=== PATIENT | male | born 1955 | race Caucasian/White ===

== ENCOUNTER 2017-09-05 08:00 | Day surgery (SDC) | payer BC ==
[2017-09-04 08:34] VITALS: BMI 29.8
[~2017-09-05 08:00] MED LIST: LACTATED RINGERS 1,000 ML IV SCH
[2017-09-05] MEDS ORDERED: LIDOCAINE 1% 20 ML VIAL (10MG/ML) FOR IV START INTRADERMA ONE (08:18)
[2017-09-05 08:22] VITALS: RESP 18; TEMP 98.7
[2017-09-05] MEDS ORDERED: PROPOFOL 10 MG/ML 20 ML VIAL IV ONE (09:10)
--- NOTE | 2017-09-05 09:16 | P.GSHP ---
History of Present Illness H&P Date: 09/05/17 Chief Complaint: colon cancer screening Patient here today for screening colonoscopy. He has not had one previously. No bowel related complaints. No family history of colon cancer. Past Medical History Past Medical History: GERD/Reflux, Prostate Disorder Additional Past Medical History / Comment(s): PROSTATE CANCER History of Any Multi-Drug Resistant Organisms: None Reported Past Surgical History: Orthopedic Surgery Additional Past Surgical History / Comment(s): PROSTATE SURGERY, LEFT LEG SURGERY Past Anesthesia/Blood Transfusion Reactions: No Reported Reaction Past Psychological History: No Psychological Hx Reported Smoking Status: Never smoker Past Alcohol Use History: Occasional Past Drug Use History: None Reported - Past Family History Mother Family Medical History: No Reported History Medications and Allergies Home Medications Medication Instructions Recorded Confirmed Type Ibuprofen [Motrin] 400 - 800 mg PO Q6HR PRN 09/04/17 09/04/17 History Omeprazole [PriLOSEC] 20 mg PO AC-BRKFST PRN 09/04/17 09/05/17 History Allergies Allergy/AdvReac Type Severity Reaction Status Date / Time codeine Allergy Hallucinati Verified 09/04/17 08:14 ons Surgical - Exam Vital Signs Temp Pulse Resp BP Pulse Ox 98.7 F 72 18 131/82 93 L 09/05/17 08:21 09/05/17 08:21 09/05/17 08:21 09/05/17 08:21 09/05/17 08:21 Physical exam: General: Well-developed, well-nourished HEENT: Normocephalic, sclerae nonicteric Abdomen: Nontender, nondistended Extremities: No edema Neuro: Alert and oriented Assessment and Plan (1) Colon cancer screening Narrative/Plan: Will proceed with colonoscopy at this time Current Visit: Yes Status: Acute Code(s): Z12.11 - ENCOUNTER FOR SCREENING FOR MALIGNANT NEOPLASM OF COLON SNOMED Code(s): 130267953
--- NOTE | 2017-09-05 09:33 | P.PCN ---
Date of Procedure: 09/05/17 Procedure(s) Performed: PREOPERATIVE DIAGNOSIS: Colon cancer screening POSTOPERATIVE DIAGNOSIS: Ascending colon polyp, rectal polyp, mild diverticulosis PROCEDURE: Colonoscopy with biopsy ANESTHESIA: MAC SURGEON: Clint Patel M.D. SPECIMENS: Ascending and rectal polyp ENDOSCOPIC PROCEDURE: The patient was placed on the endoscopy table in the left decubitus position. The Olympus colonoscope was inserted into the anus and passed under direct visualization to the base of the cecum. The appendiceal orifice was visualized. From that point the scope was slowly withdrawn inspecting all surfaces carefully. There were no neoplastic inflammatory or polypoid lesions throughout the cecum. In the ascending colon there was a small polyp that was removed using the cold biopsy forceps. The remainder the ascending transverse descending and sigmoid colon appeared normal. In the mid rectum there was another small polyp that was removed in a similar fashion. There was mild left-sided diverticulosis present. Digital rectal examination was normal. The patient was taken to the recovery room in stable condition per anesthesia guidelines. RECOMMENDATIONS: Await biopsy results.
[2017-09-05 09:59] VITALS: BP 127/76; PULSE 75
== END 2017-09-05 10:11 | disposition home or self-care (01) ==
LOC: ORWHC2ENDO 08:00
PROVIDERS: ATTEND Surgery
DX: Z12.11 Encounter for screening for malignant neoplasm of colon (principal); D12.2 Benign neoplasm of ascending colon; K62.1 Rectal polyp; K57.30 Diverticulosis of large intestine without perforation or abscess without bleeding; K21.9 Gastro-esophageal reflux disease without esophagitis; Z85.46 Personal history of malignant neoplasm of prostate; Z88.5 Allergy status to narcotic agent; Z79.899 Other long term (current) drug therapy
CPT/HCPCS: 88305; 45380; J2704

== ENCOUNTER → 2019-07-12 | Outpatient (CLI) | payer BC ==
--- NOTE | 2019-07-12 13:19 | US ---
EXAMINATION TYPE: US venous doppler duplex LE RT DATE OF EXAM: 07/12/2019 12:23 PM COMPARISON: NONE CLINICAL HISTORY: M79.669 Pain in unspecified lower leg. Right leg pain and swelling, right knee repl acement 5 days ago, patient on blood thinners. SIDE PERFORMED: Right TECHNIQUE: The lower extremity deep venous system is examined utilizing real time linear array sonog isabel with graded compression, doppler sonography and color-flow sonography. VESSELS IMAGED: External Iliac Vein (EIV) Common Femoral Vein Deep Femoral Vein Greater Saphenous Vein * Femoral Vein Popliteal Vein Small Saphenous Vein * Proximal Calf Veins (* superficial vessels) Grayscale, color doppler, spectral doppler imaging performed of the deep veins of the right lower ext remity. There is normal flow, compressibility, vascular waveforms. Right Leg: Appears negative for DVT IMPRESSION: No sonographic evidence of deep venous arthrosis within the right lower extremity.
== END | disposition home or self-care (01) ==
LOC: RADUSWWP 11:59
PROVIDERS: ATTEND Orthopaedic Surgery Sports Medicine
DX: M79.89 Other specified soft tissue disorders (principal); M79.661 Pain in right lower leg; R60.9 Edema, unspecified

== ENCOUNTER → 2020-01-04 | Outpatient (CLI) | payer BC ==
--- NOTE | 2020-01-04 16:39 | US ---
EXAMINATION TYPE: US carotid duplex BILAT DATE OF EXAM: 01/04/2020 COMPARISON: NONE CLINICAL HISTORY: 64-year-old male G45.9 TIA. TECHNIQUE: Carotid duplex ultrasound examination. Indirect Doppler criteria was utilized. FINDINGS: EXAM MEASUREMENTS: RIGHT: Peak Systolic Velocity (PSV) cm/sec ----- Right CCA: 77.6 ----- Right ICA: 79.5 ----- Right ECA: 99.1 ICA/CCA ratio: 1.0 RIGHT: End Diastole cm/sec ----- Right CCA: 18.2 ----- Right ICA: 35.3 ----- Right ECA: 13.7 LEFT: Peak Systolic Velocity (PSV) cm/sec ----- Left CCA: 70.0 ----- Left ICA: 69.1 ----- Left ECA: 73.5 ICA/CCA ratio: 1.0 LEFT: End Diastole cm/sec ----- Left CCA: 16.6 ----- Left ICA: 18.3 ----- Left ECA: 9.9 VERTEBRALS (direction of flow): Right Vertebral: Antegrade Left Vertebral: Antegrade Rhythm: Normal Security System Administrator notes: Mild atherosclerotic changes, no significant velocity elevations. IMPRESSION: No hemodynamically significant internal carotid artery stenosis on either side. Criteria for Assigning % of Stenosis / Diameter reduction (Estimation based on the indirect measurements of the internal carotid artery velocities (ICA PSV). 1. Normal (no stenosis)=ICA PSV < 125 cm/s: ratio < 2.0: ICA EDV<40 cm/s. 2. Less than 50% stenosis=ICA PSV < 125 cm/s: ratio < 2.0: ICA EDV<40 cm/s. 3. 50 to 69% stenosis=ICA PSV of 125 to 230 cm/s: ration 2.0 ? 4.0: ICA EDV 40-100 cm/s. 4. Greater than 70% stenosis to near occlusion= ICA PSV > 230 cm/s: ratio > 4.0: ICA EDV > 100 cm/s. 5. Near occlusion= ICA PSV velocities may be low or undetectable: variable ratio and ICA EDV. 6. Total occlusion=unable to detect flow.
--- NOTE | 2020-01-05 11:44 | CT ---
EXAMINATION TYPE: CT brain wo/w con DATE OF EXAM: 01/04/2020 COMPARISON: None HISTORY: 64-year-old male G45.9, TIA's TECHNIQUE: Examination was done in axial plane before and after administration of 100 mL Isovue 300 intravenous contrast. Coronal and sagittal reconstructions performed. CT DLP: 2523 mGycm Automated exposure control for dose reduction was used. FINDINGS: There is no evidence of acute intracranial hemorrhage, acute ischemic changes, mass, mass-effect, or extra-axial fluid collection. There is no effacement of cerebral sulci or basal subarachnoid cister ns. There is no hydrocephalus. There is no midline shift. Castro-white matter distinction is preserv ed. Mild patchy white matter hypodensities in both cerebral hemispheres suggesting changes of chronic sma ll vessel ischemic disease. Suspect persistent origin right posterior cerebral artery. Asymmetrically diminutive appearance to the M1 segment left middle cerebral artery may be a product of slice selection. Dural venous sinuses are patent. No enhancing intracranial lesions seen. Moderate mucosal thickening ethmoid air cells. IMPRESSION: 1. Mild patchy changes of chronic small vessel ischemic disease. No acute intracranial abnormality se en. 2. No enhancing intracranial lesions. 3. Asymmetrically diminutive appearance to the M1 segment left MCA may be a product of slice selectio n. Given the patient's history, consider MR angiography to exclude arterial stenosis.
--- NOTE | 2020-01-05 16:01 | ECHOF ---
Referral Reason:G45.9 Transient cerebral ischemic attack, unspecif MEASUREMENTS -------- HEIGHT: 180.3 cm WEIGHT: 99.8 kg BP: RVIDd: 2.5 cm (< 3.3) IVSd: 1.2 cm (0.6 - 1.1) LVIDd: 3.8 cm (3.9 - 5.3) LVPWd: 1.5 cm (0.6 - 1.1) IVSs: 1.9 cm LVIDs: 1.7 cm LVPWs: 1.9 cm LAESV Index (A-L): 33.98 ml/m Ao Diam: 3.6 cm (2.0 - 3.7) AV Cusp: 2.5 cm (1.5 - 2.6) LA Diam: 4.1 cm (2.7 - 3.8) MV EXCURSION: 23.948 mm (> 18.000) MV EF SLOPE: 276 mm/s (70 - 150) EPSS: 0.8 cm MV E Christopher: 0.85 m/s MV DecT: 188 ms MV A Christopher: 0.72 m/s MV E/A Ratio: 1.19 RAP: 5.00 mmHg RVSP: 13.49 mmHg FINDINGS -------- Sinus rhythm. This was a technically adequate study. The left ventricular size is normal. There is mild concentric left ventricular hypertrophy. Overa ll left ventricular systolic function is normal with, an EF between 55 - 60 %. The right ventricle is normal in size. LA is midly dilated 29-33ml/m2. The right atrial size is normal. The aortic valve is trileaflet, and appears structurally normal. No aortic stenosis or regurgitation. The mitral valve is normal. Mild mitral regurgitation is present. The tricuspid valve appears structurally normal. Mild tricuspid regurgitation present. Right vent ricular systolic pressure is normal at < 35 mmHg. There is no pulmonic regurgitation present. The aortic root size is normal. Normal inferior vena cava with normal inspiratory collapse consistent with estimated right atrial pre ssure of 5 mmHg. There is a small, generalized pericardial effusion present. CONCLUSIONS -------- 1. There is mild concentric left ventricular hypertrophy. 2. Overall left ventricular systolic function is normal with, an EF between 55 - 60 %. 3. LA is midly dilated 29-33ml/m2. 4. The aortic valve is trileaflet, and appears structurally normal. No aortic stenosis or regurgitati on. 5. Mild mitral regurgitation is present. 6. Mild tricuspid regurgitation present. 7. There is no pulmonic regurgitation present. 8. There is a small, generalized pericardial effusion present. PRODUCT SUPPORT ENGINEER: Nilam Bustamante RDCS
== END | disposition home or self-care (01) ==
LOC: RADECHMAIN 14:36
PROVIDERS: ATTEND Family Medicine
DX: I08.1 Rheumatic disorders of both mitral and tricuspid valves (principal); I31.3 Pericardial effusion (noninflammatory); I67.82 Cerebral ischemia; G45.9 Transient cerebral ischemic attack, unspecified; Z88.6 Allergy status to analgesic agent
CPT/HCPCS: 93306; 93880; 70470; Q9967

== ENCOUNTER 2020-04-03 12:53 | Emergency (ER) | payer BC ==
[2020-04-03] MEDS ORDERED: ONDANSETRON 4 MG/2 ML VIAL IVP STA (13:09)
[2020-04-03] MEDS ORDERED: SODIUM CHLORIDE 0.9% 1,000 ML IV STA (13:09)
[2020-04-03] MEDS ORDERED: PANTOPRAZOLE 40 MG/10 ML VIAL IVP STA (13:10)
--- NOTE | 2020-04-03 13:26 | ED ---
Nausea/Vomiting/Diarrhea HPI - General Source: family Mode of arrival: ambulatory Limitations: no limitations <Noah Severino - Last Filed: 04/04/20 12:47> <Juanita Keith - Last Filed: 04/05/20 15:10> - General Chief complaint: Nausea/Vomiting/Diarrhea Stated complaint: [place] COVID test Time Seen by Provider: 04/03/20 13:01 - History of Present Illness Initial comments: Patient is 64-year-old male presenting to emergency Department with a chief complaint of nausea vomiting diarrhea. Patient reports symptoms started yesterday after he had pork chops which he personally cut. Patient states he's been nauseous but never actually vomited. Does report generalized lower abdominal pressure which she believes is secondary to the diarrhea. Reports there is profuse watery diarrhea with no hematochezia or melena. Patient also reports generalized body aches. States he feels like the flu. Patient states his friends told him to be tested for covid-19. She denies any exposure to a direct Covid patient. Denies taking medication to alleviate the symptoms. Denies any coughing, chest pain, shortness of breath, back pain. Does report some night sweats but denies chills or fevers. Denies hematuria, dysuria, increased urgency or frequency. (Noah Severino) - Related Data Home Medications Medication Instructions Recorded Confirmed Ascorbic Acid [Vitamin C] 500 mg PO DAILY 04/03/20 04/03/20 Cholecalciferol [Vitamin D3 (25 1,000 unit PO DAILY 04/03/20 04/03/20 Mcg = 1000 Iu)] Zinc 50 mg PO DAILY 04/03/20 04/03/20 Previous Rx's Medication Instructions Recorded Ondansetron Odt [Zofran Odt] 4 mg PO Q8HR PRN #10 tab 04/03/20 Allergies Allergy/AdvReac Type Severity Reaction Status Date / Time codeine Allergy Hallucinati Verified 04/03/20 13:28 ons Review of Systems ROS Other: All systems not noted in ROS Statement are negative. <Noah Severino - Last Filed: 04/04/20 12:47> ROS Other: All systems not noted in ROS Statement are negative. <Juanita Keith - Last Filed: 04/05/20 15:10> ROS Statement: Those systems with pertinent positive or pertinent negative responses have been documented in the HPI. Past Medical History Past Medical History: GERD/Reflux, Prostate Disorder Additional Past Medical History / Comment(s): PROSTATE CANCER History of Any Multi-Drug Resistant Organisms: None Reported Past Surgical History: Orthopedic Surgery Additional Past Surgical History / Comment(s): PROSTATE SURGERY, LEFT LEG SURGERY Past Anesthesia/Blood Transfusion Reactions: No Reported Reaction Past Psychological History: No Psychological Hx Reported Smoking Status: Never smoker Past Alcohol Use History: Occasional Past Drug Use History: None Reported - Past Family History Mother Family Medical History: No Reported History <Noah Severino - Last Filed: 04/04/20 12:47> General Exam Limitations: no limitations General appearance: alert, in no apparent distress Head exam: Present: atraumatic, normocephalic, normal inspection Eye exam: Present: normal appearance, PERRL, EOMI Pupils: Present: normal accommodation ENT exam: Present: normal exam, normal oropharynx, mucous membranes moist, TM's normal bilaterally, normal external ear exam Neck exam: Present: normal inspection, full ROM. Absent: tenderness Respiratory exam: Present: normal lung sounds bilaterally. Absent: respiratory distress, wheezes, rales Cardiovascular Exam: Present: regular rate, normal rhythm, normal heart sounds GI/Abdominal exam: Present: soft, tenderness (Mild, diffuse lower abdominal tenderness. Negative McBurney point.), normal bowel sounds. Absent: distended, guarding, rebound, rigid Extremities exam: Present: normal inspection, full ROM, normal capillary refill. Absent: tenderness Back exam: Present: normal inspection, full ROM. Absent: tenderness, CVA tenderness (R), CVA tenderness (L) Neurological exam: Present: alert, oriented X3, normal gait Psychiatric exam: Present: normal affect, normal mood Skin exam: Present: warm, dry, intact, normal color <Noah Severino Last Filed: 04/04/20 12:47> Course Vital Signs 04/03/20 04/03/20 12:54 15:21 Temperature 98.7 F 98.4 F Pulse Rate 75 71 Respiratory 18 19 Rate Blood Pressure 137/69 130/84 O2 Sat by Pulse 98 Oximetry Medical Decision Making - Lab Data Result diagrams: 04/03/20 13:40 04/03/20 13:40 <Noah Severino - Last Filed: 04/04/20 12:47> - Lab Data Result diagrams: 04/03/20 13:40 04/03/20 13:40 <Juanita Keith - Last Filed: 04/05/20 15:10> - Medical Decision Making Patient is 64-year-old male presenting to the emergency department with a chief complaint of nausea vomiting diarrhea. Physical examination is unremarkable aside from mild, diffuse lower abdominal tenderness. covid-19r testing is negative. He does have mild leukocytosis which I suspect secondary to a vomiting episode. I believe the symptoms are more related to gastroenteritis rather than being covid-19. Patient was given IV fluids and antiemetics. On reevaluation, patient reports improvement in symptoms. Patient will be discharged with Zofran and advised to follow. Bananas, rice applesauce and toast diet. He was advised to follow with his primary care physician. He was advised to take Tylenol if he develops a fever. He was also advised to self isolate until he received the results of the Covid testing. Strict return parameters were thoroughly discussed the patient was attempting agreeable. Case discussed with physician. (Noah Severino) I was available for consultation in the emergency department. The history and physical exam were done by the midlevel provider. I was consulted for this patients care. I reviewed the case with the midlevel provider and based on their presentation of the patient, I agree with the assessment, medical decision making and plan of care as documented. Chart was dictated using [employer] dictation software. Attempts were made to correct any dictation errors however some typographical errors may persist. (Juanita Keith) - Lab Data Lab Results 04/03/20 04/03/20 04/03/20 Range/Units 13:40 13:40 13:40 WBC 11.6 H (3.8-10.6) k/uL RBC 5.43 (4.30-5.90) m/uL Hgb 16.4 (13.0-17.5) gm/dL Hct 48.3 (39.0-53.0) % MCV 89.0 (80.0-100.0) fL MCH 30.1 (25.0-35.0) pg MCHC 33.9 (31.0-37.0) g/dL RDW 12.9 (11.5-15.5) % Plt Count 210 (150-450) k/uL Neutrophils % 85 % Lymphocytes % 9 % Monocytes % 4 % Eosinophils % 0 % Basophils % 0 % Neutrophils # 9.8 H (1.3-7.7) k/uL Lymphocytes # 1.1 (1.0-4.8) k/uL Monocytes # 0.5 (0-1.0) k/uL Eosinophils # 0.0 (0-0.7) k/uL Basophils # 0.0 (0-0.2) k/uL Sodium 139 (137-145) mmol/L Potassium 4.1 (3.5-5.1) mmol/L Chloride 107 (98-107) mmol/L Carbon Dioxide 25 (22-30) mmol/L Anion Gap 7 mmol/L BUN 21 H (9-20) mg/dL Creatinine 1.25 (0.66-1.25) mg/dL Est GFR (CKD-EPI)AfAm 70 (>60 ml/min/1.73 sqM) Est GFR (CKD-EPI)NonAf 61 (>60 ml/min/1.73 sqM) Glucose 117 H (74-99) mg/dL Calcium 9.0 (8.4-10.2) mg/dL Total Bilirubin 1.1 (0.2-1.3) mg/dL AST 33 (17-59) U/L ALT 38 (4-49) U/L Alkaline Phosphatase 64 (38-126) U/L Total Protein 7.1 (6.3-8.2) g/dL Albumin 4.2 (3.5-5.0) g/dL Lipase 59 (23-300) U/L Coronavirus (PCR) Not Detected (Not Detected) Disposition Is patient prescribed a controlled substance at d/c from ED?: No Time of Disposition: 15:08 <Noah Severino - Last Filed: 04/04/20 12:47> <Juanita Keith - Last Filed: 04/05/20 15:10> Clinical Impression: Nausea vomiting and diarrhea Disposition: HOME SELF-CARE Condition: Stable Instructions (If sedation given, give patient instructions): Gastroenteritis (DC), Acute Nausea and Vomiting (ED) Additional Instructions: Take prescribed medication as directed. Drink plenty of fluids. Eat bananas, rice, applesauce and toast. Prescriptions: Ondansetron Odt [Zofran Odt] 4 mg PO Q8HR PRN #10 tab PRN Reason: Nausea Referrals: Jas Caro Jr, DO [Primary Care Provider] - 1-2 days
[2020-04-03 14:05] LABS: Basophils % (A) 0 %; Eosinophils % (A) 0 %; HCT 48.3 % (39.0-53.0); HGB 16.4 gm/dL (13.0-17.5); Lymphocytes # (A) 1.1 k/uL (1.0-4.8); Lymphocytes % (A) 9 %; MCH 30.1 pg (25.0-35.0); MCHC 33.9 g/dL (31.0-37.0); Mean Platelet Volume 7.7; Monocytes # (A) 0.5 k/uL (0-1.0); Monocytes % (A) 4 %; Neutrophils # (A) 9.8 k/uL (1.3-7.7); Neutrophils % (A) 85 %; Platelet Count 210 k/uL (150-450); RBC 5.43 m/uL (4.30-5.90); RDW 12.9 % (11.5-15.5); WBC 11.6 k/uL (3.8-10.6)
[2020-04-03 14:06] LABS: Albumin 4.2 g/dL (3.5-5.0); Potassium 4.1 mmol/L (3.5-5.1); Total Bilirubin 1.1 mg/dL (0.2-1.3); Total Protein 7.1 g/dL (6.3-8.2)
[2020-04-03 15:22] VITALS: BP 130/84; PULSE 71; RESP 19; TEMP 98.4
== END 2020-04-03 15:22 | disposition home or self-care (01) ==
LOC: EC 12:53
DX: R11.2 Nausea with vomiting, unspecified (principal); R19.7 Diarrhea, unspecified; R10.819 Abdominal tenderness, unspecified site; D72.829 Elevated white blood cell count, unspecified; Z20.828 Contact with and (suspected) exposure to other viral communicable diseases; Z88.5 Allergy status to narcotic agent; Z85.46 Personal history of malignant neoplasm of prostate; Z98.890 Other specified postprocedural states
CPT/HCPCS: 93005; 80053; 83690; 85025; 99284; 96374; 96375; 96361; U0003; J2405; C9113

== ENCOUNTER 2020-12-15 18:16 | Emergency (ER) | payer BC, OTHER ==
[2020-12-15 18:31] VITALS: RESP 18
[2020-12-15] MEDS ORDERED: IPRATROPIUM-ALBUTEROL 3 ML NEB INHALATION STA (18:37)
--- NOTE | 2020-12-15 18:39 | ED ---
General Adult HPI - General Chief complaint: Recheck/Abnormal Lab/Rx Stated complaint: cough Time Seen by Provider: 12/15/20 18:31 Source: patient, family, RN notes reviewed Mode of arrival: ambulatory Limitations: no limitations - History of Present Illness Initial comments: Patient is a pleasant 65-year-old male presenting to the emergency department with cough. Onset of symptoms was a few days ago. Patient did see his doctor 3 days ago and was diagnosed with pneumonia. Chest x-ray was not done at that time. Patient was put on antibiotics however no improvement of symptoms. Symptoms may be as little bit worse. Patient does cough with yellow sputum. No fevers. No leg pain or leg swelling. Patient does get similar symptoms related to pneumonia almost every year. - Related Data Home Medications Medication Instructions Recorded Confirmed Ascorbic Acid [Vitamin C] 500 mg PO DAILY 04/03/20 04/03/20 Cholecalciferol [Vitamin D3 (25 1,000 unit PO DAILY 04/03/20 04/03/20 Mcg = 1000 Iu)] Zinc 50 mg PO DAILY 04/03/20 04/03/20 Previous Rx's Medication Instructions Recorded Ondansetron Odt [Zofran Odt] 4 mg PO Q8HR PRN #10 tab 04/03/20 Albuterol Sulfate [Albuterol 2 puff INHALATION Q6H PRN #1 12/15/20 Sulfate Hfa] inhaler predniSONE [Deltasone] 20 mg PO BID #10 tab 12/15/20 Allergies Allergy/AdvReac Type Severity Reaction Status Date / Time codeine Allergy Hallucinati Verified 12/15/20 18:31 ons Review of Systems ROS Statement: Those systems with pertinent positive or pertinent negative responses have been documented in the HPI. ROS Other: All systems not noted in ROS Statement are negative. Constitutional: Denies: fever, chills Eyes: Denies: eye pain ENT: Denies: ear pain Respiratory: Reports: cough Cardiovascular: Denies: chest pain Endocrine: Denies: fatigue Gastrointestinal: Denies: abdominal pain Genitourinary: Denies: dysuria Musculoskeletal: Denies: back pain Skin: Denies: rash Neurological: Denies: weakness Past Medical History Past Medical History: GERD/Reflux, Prostate Disorder Additional Past Medical History / Comment(s): PROSTATE CANCER History of Any Multi-Drug Resistant Organisms: None Reported Past Surgical History: Orthopedic Surgery Additional Past Surgical History / Comment(s): PROSTATE SURGERY, LEFT LEG SURGERY Past Anesthesia/Blood Transfusion Reactions: No Reported Reaction Past Psychological History: No Psychological Hx Reported Smoking Status: Never smoker Past Alcohol Use History: Occasional Past Drug Use History: None Reported - Past Family History Mother Family Medical History: No Reported History General Exam Limitations: no limitations General appearance: alert, in no apparent distress Head exam: Present: normocephalic Eye exam: Present: normal appearance Neck exam: Present: normal inspection Respiratory exam: Present: rhonchi Cardiovascular Exam: Present: regular rate, normal rhythm GI/Abdominal exam: Present: soft. Absent: tenderness Extremities exam: Present: normal inspection. Absent: pedal edema, calf tenderness Neurological exam: Present: alert Psychiatric exam: Present: normal affect, normal mood Skin exam: Present: normal color Course Vital Signs 12/15/20 12/15/20 12/15/20 18:27 18:45 19:48 Temperature 97.8 F 98 F Pulse Rate 89 83 85 Respiratory 18 18 Rate Blood Pressure 142/84 147/81 O2 Sat by Pulse 97 94 L Oximetry EKG Findings - EKG Comments: EKG Findings:: Normal sinus rhythm 35. AL 158. QRS 90. QT 378. QTC 449. Normal axis. Normal QRS. No acute ST change. Medical Decision Making - Medical Decision Making Patient reevaluated and resting comfortably in bed. Patient feels somewhat better with nebulizer. Pulse ox 97% on room air. Patient updated on results. Patient offered further evaluation including blood work and testing for COVID- 19. Patient refuses. Patient does admit that he had negative covid 19 test done just a couple of days ago. Patient does request area injection. Patient states this is similar to his chronic problems. Patient is agreeable with. Prescription in addition otherwise requests discharge. - Radiology Data Radiology results: image reviewed (Chest x-ray reveals no acute process) Disposition Clinical Impression: Bronchitis Disposition: HOME SELF-CARE Condition: Stable Instructions (If sedation given, give patient instructions): Acute Bronchitis (ED) Additional Instructions: Please do follow-up with your primary care physician in the next couple days for recheck. Return for difficulty in breathing, pain, worsening or changing symptoms or any other concerns. Prescription has been sent to your pharmacy. Prescriptions: Albuterol Sulfate [Albuterol Sulfate Hfa] 2 puff INHALATION Q6H PRN #1 inhaler PRN Reason: Shortness Of Breath predniSONE [Deltasone] 20 mg PO BID #10 tab Is patient prescribed a controlled substance at d/c from ED?: No Referrals: Jas Caro Jr, [Primary Care Provider] - 1-2 days Time of Disposition: 20:06
--- NOTE | 2020-12-15 19:54 | XR ---
EXAMINATION TYPE: XR chest 2V DATE OF EXAM: 12/15/2020 COMPARISON: NONE HISTORY: Cough. Short of breath. TECHNIQUE: 2 views FINDINGS: Heart and mediastinum are normal. Lungs are clear. Diaphragm is normal. Bony thorax is inta ct. There are chest leads. IMPRESSION: No active cardiopulmonary disease. Normal heart.
[2020-12-15] MEDS ORDERED: methylPREDNISolone SOD SUCCI 125 MG/2 ML VIAL IM ONE (20:03)
[2020-12-15 20:05] VITALS: PULSE 86
[2020-12-15 20:24] VITALS: BP 157/90; TEMP 98.1
== END 2020-12-15 20:24 | disposition home or self-care (01) ==
LOC: EC 18:16
DX: J40 Bronchitis, not specified as acute or chronic (principal)
CPT/HCPCS: 94640; 93005; 71046; 99283; 96372; J2930

== ENCOUNTER → 2020-12-25 | Outpatient (CLI) | payer OTHER ==
--- NOTE | 2020-12-25 10:31 | CT ---
EXAMINATION TYPE: CT angio chest DATE OF EXAM: 12/25/2020 COMPARISON: Radiograph 12/15/2020 HISTORY: 65-year-old male R05, R06.02 cough and Shortness of breath TECHNIQUE: Contiguous axial scanning of the chest performed with IV Contrast, patient injected with 1 00, wasted 16 mL of Isovue 370. Coronal/sagittal MIP reconstructions performed. CT DLP: 493 mGycm Automated exposure control for dose reduction was used. FINDINGS: Heart limits of normal in size without pericardial effusion. No flattening of the interventricular se ptum reflux of contrast into the hepatic veins. Borderline ectasia aortic root at 3.5 cm. Also ascending aorta 3.6 cm. Mild atherosclerotic arch calc ifications. Conventional arterial vessel branching anatomy. Scattered nonenlarged mediastinal lymph nodes measuring up to 6 mm AP window and 9 mm precarinal. Mil dly enlarged 1.4 cm right hilar lymph node. Satisfactory opacification of the pulmonary arterial system without evidence for pulmonary embolus. Prominent dependent atelectasis. Mild diffuse bronchial wall thickening. A few scattered calcified granulomas in the lungs measuring up to 6 mm. No consolidation or pleural e ffusion. Small hiatal hernia. Diffuse fatty infiltration of the liver. Bones: [facility] within the lower thoracic spine. Some degenerative change at the left glenohumeral joint IMPRESSION: 1. NO EVIDENCE FOR PULMONARY EMBOLUS. 2. MILD DIFFUSE BRONCHIAL WALL THICKENING SUGGESTS BRONCHITIS OR CHRONIC ASTHMA. A COUPLE BENIGN CALC IFIED GRANULOMAS IN THE LUNGS MEASURING UP TO 6 CM. 3. A SOLITARY MILDLY ENLARGED 1.4 CM RIGHT HILAR LYMPH NODE COULD BE REACTIVE. CONSIDER 6 MONTH FOLLO W-UP CT CHEST TO REASSESS. 4. SMALL HIATAL HERNIA AND HEPATIC STEATOSIS.
== END | disposition home or self-care (01) ==
LOC: RADCTMAIN 10:00
PROVIDERS: ATTEND Family Medicine
DX: J84.10 Pulmonary fibrosis, unspecified (principal); R59.9 Enlarged lymph nodes, unspecified; K76.0 Fatty (change of) liver, not elsewhere classified; R06.02 Shortness of breath; K44.9 Diaphragmatic hernia without obstruction or gangrene
CPT/HCPCS: 71275; Q9967

== ENCOUNTER 2022-03-10 11:14 | Emergency (ER) | payer OTHER ==
[2022-03-10 11:24] VITALS: BP 136/74; PULSE 83; RESP 20; TEMP 98.7
--- NOTE | 2022-03-10 12:04 | XR ---
EXAMINATION TYPE: XR ankle complete RT DATE OF EXAM: 03/10/2022 11:39 AM INDICATION: Patient age:Male; 66 years old; Reason for study: Injury; COMPARISON: None TECHNIQUE: The right ankle is imaged in frontal, lateral and oblique projections. FINDINGS: There is no evidence of acute osseous pathology. The joint spaces are well-preserved without evidenc e of subluxation or dislocation. Kager's fat pad is intact. Mild soft tissue swelling around the late ral ankle. No radiopaque foreign bodies are identified. Calcaneal plantar spurring noted. IMPRESSION: 1. No evidence of acute fracture. 2. Subcutaneous swelling around the lateral ankle likely secondary to underlying soft tissue injury.
--- NOTE | 2022-03-10 12:19 | ED ---
Lower Extremity Injury HPI - General Chief Complaint: Extremity Injury, Lower Stated Complaint: ankle injury Time Seen by Provider: 03/10/22 11:58 Source: patient, RN notes reviewed Mode of arrival: ambulatory Limitations: no limitations - History of Present Illness Initial Comments: 66-year-old male present emergency department chief complaint of right ankle pain. Patient states she days ago he stepped on uneven surface states that he rolled his ankle. Patient states she's had swelling, pain worsening duration no prior ankle fracture. Patient has no paresthesias no other complaints. - Related Data Home Medications Medication Instructions Recorded Confirmed Ascorbic Acid [Vitamin C] 500 mg PO DAILY 04/03/20 04/03/20 Cholecalciferol [Vitamin D3 (25 1,000 unit PO DAILY 04/03/20 04/03/20 Mcg = 1000 Iu)] Zinc 50 mg PO DAILY 04/03/20 04/03/20 Previous Rx's Medication Instructions Recorded Ondansetron Odt [Zofran Odt] 4 mg PO Q8HR PRN #10 tab 04/03/20 Albuterol Sulfate [Albuterol 2 puff INHALATION Q6H PRN #1 12/15/20 Sulfate Hfa] inhaler predniSONE [Deltasone] 20 mg PO BID #10 tab 12/15/20 Ibuprofen [Motrin] 600 mg PO Q8HR PRN #30 tab 03/10/22 Allergies Allergy/AdvReac Type Severity Reaction Status Date / Time codeine Allergy Hallucinati Verified 03/10/22 11:24 ons Review of Systems ROS Statement: Those systems with pertinent positive or pertinent negative responses have been documented in the HPI. ROS Other: All systems not noted in ROS Statement are negative. Past Medical History Past Medical History: GERD/Reflux, Prostate Disorder Additional Past Medical History / Comment(s): PROSTATE CANCER History of Any Multi-Drug Resistant Organisms: None Reported Past Surgical History: Orthopedic Surgery Additional Past Surgical History / Comment(s): PROSTATE SURGERY, LEFT LEG SURGERY Past Anesthesia/Blood Transfusion Reactions: No Reported Reaction Past Psychological History: No Psychological Hx Reported Smoking Status: Never smoker Past Alcohol Use History: Occasional Past Drug Use History: None Reported - Past Family History Mother Family Medical History: No Reported History General Exam Limitations: no limitations General appearance: alert, in no apparent distress Head exam: Present: atraumatic, normocephalic, normal inspection Eye exam: Present: normal appearance, PERRL, EOMI. Absent: scleral icterus, conjunctival injection, periorbital swelling Respiratory exam: Present: normal lung sounds bilaterally. Absent: respiratory distress, wheezes, rales, rhonchi, stridor Cardiovascular Exam: Present: regular rate, normal rhythm, normal heart sounds. Absent: systolic murmur, diastolic murmur, rubs, gallop, clicks Extremities exam: Present: other (Right distal tib-fib there is moderate swelling, tenderness lateral portion over the distal fibula, no foot tenderness no proximal tib-fib tenderness neurovascular intact) Course Vital Signs 03/10/22 11:22 Temperature 98.7 F Pulse Rate 83 Respiratory 20 Rate Blood Pressure 136/74 O2 Sat by Pulse 98 Oximetry Procedures - Orthopedic Splinting/Casting Injury #1 Side: right Lower Extremity Injury Location: short leg, ankle Lower Extremity Immobilizer: posterior splint, synthetic pre-padded splint Other Orthopedic Equipment: crutches Medical Decision Making - Medical Decision Making X-ray was reviewed by me shows distal fibular fracture. Patient was splinted in a short leg splint, crutches were provided on-call orthopedics provided patient was discharged with ibuprofen did not request any pain medications in the emergency department. Disposition Clinical Impression: Closed fracture of right distal fibula Disposition: HOME SELF-CARE Condition: Stable Instructions (If sedation given, give patient instructions): Leg Fracture (ED) Additional Instructions: Please return to the Emergency Department if symptoms worsen or any other c oncerns. Prescriptions: Ibuprofen [Motrin] 600 mg PO Q8HR PRN #30 tab PRN Reason: Pain Is patient prescribed a controlled substance at d/c from ED?: No Referrals: Jas Caro Jr, DO [Primary Care Provider] - 1-2 days Wayne Parrish DO [Doctor of Osteopathic Medicine] - 1-2 days Time of Disposition: 12:19
== END 2022-03-10 12:39 | disposition home or self-care (01) ==
LOC: EC 11:14
DX: S82.831A Other fracture of upper and lower end of right fibula, initial encounter for closed fracture (principal); K21.9 Gastro-esophageal reflux disease without esophagitis; Z88.5 Allergy status to narcotic agent; Z79.899 Other long term (current) drug therapy; W18.49XA Other slipping, tripping and stumbling without falling, initial encounter
CPT/HCPCS: 99283

== ENCOUNTER → 2023-06-26 | Outpatient (CLI) | payer BC, MEDICARE ==
[2023-06-26 16:59] LABS: ALT 41 U/L (4-49); AST 40 U/L (17-59); African American GFR (CKD) 90 (>60 ml/min/1.73 sqM); Albumin 3.8 g/dL (3.5-5.0); Albumin/Globulin Ratio 1.4; Alkaline Phosphatase 68 U/L (38-126); Anion Gap 10 mmol/L; Blood Urea Nitrogen 17 mg/dL (9-20); Calcium 8.6 mg/dL (8.4-10.2); Carbon Dioxide 26 mmol/L (22-30); Chloride 104 mmol/L (98-107); Globulin 2.7 g/dL; Glucose 143 mg/dL (74-99); Non-African American GFR(CKD) 78 (>60 ml/min/1.73 sqM); Potassium 4.1 mmol/L (3.5-5.1); Sodium 140 mmol/L (137-145); Total Bilirubin 0.5 mg/dL (0.2-1.3); Total Protein 6.5 g/dL (6.3-8.2)
== END | disposition home or self-care (01) ==
LOC: LABWHC1 16:12
PROVIDERS: ATTEND Family Medicine
DX: R03.0 Elevated blood-pressure reading, without diagnosis of hypertension (principal)
CPT/HCPCS: 36415; 80053

== ENCOUNTER → 2025-01-17 | Outpatient (CLI) | payer MEDICARE, BC ==
--- NOTE | 2025-01-18 14:42 | MR ---
MR shoulder RT wo con DATE OF EXAM: 01/17/2025 8:23 PM COMPARISON: None. 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 FINDINGS: Rotator cuff: Supraspinatus and infraspinatus: Full-thickness fullwidth tear of supraspinatus with retraction to th e level of the glenoid (approximately 5.6 cm). Extension of tear into the articular surface of the in fraspinatus, partial-thickness. Background tendinosis. Intramuscular edema of the supraspinatus exten ds proximally out of the [id number]. Subscapularis: Small delaminating partial thickness articular surface tear of the superior fibers. Ba ckground tendinosis. Teres minor: Intact. Cuff muscles: Mild uniform fatty infiltration of supraspinatus, subscapularis, and teres minor. Prese rvation of infraspinatus muscle bulk. Acromioclavicular joint: Moderate arthrosis and capsular hypertrophy without effusion. SA-SD bursa: Moderate volume bursal fluid, contiguous with the joint via supraspinatus tear described above. Long head biceps tendon: Intact, with normal course. Mild intra-articular tendinosis. Rotator Interval: Edematous with complete effacement of the fat. Axillary pouch: Mild thickening and signal attenuation humeral attachment with adjacent edema, favore d to reflect low grade injury. Labrum: Tear of the posterior superior labrum extending from approximately the 11:00 to the 6:00 posi tion, through the inferior labrum. Background degeneration. Cartilage: Surface irregularity with near full-thickness fissure at the posterior chondral labral evelio ction of the glenoid. Marked thinning of the superior humeral head cartilage. Marrow: Marked subcortical cystic change of the lesser tuberosity. Small subcortical cyst posterior l ateral corner. No fracture or marrow replacing process. Other soft tissues: Moderate joint effusion. No suspicious axillary adenopathy. IMPRESSION: 1. Full-thickness fullwidth retracted tear of the supraspinatus. Some extension of tear into the art icular surface of the infraspinatus. Marked edema of the supraspinatus suggesting acuity. 2. Small partial thickness articular surface tear of subscapularis with tendinosis. 3. Moderate glenohumeral arthrosis with labral tear and degeneration. [facility], , 01/18/2025 2:40 PM
== END | disposition home or self-care (01) ==
LOC: RADMRIMAIN 18:40
PROVIDERS: ATTEND Orthopaedic Surgery
DX: S46.011A Strain of muscle(s) and tendon(s) of the rotator cuff of right shoulder, initial encounter (principal); M25.111 Fistula, right shoulder; M19.011 Primary osteoarthritis, right shoulder; X58.XXXA Exposure to other specified factors, initial encounter